=== PATIENT | male | born 1995 | race Caucasian/White ===

== ENCOUNTER 2020-04-03 10:37 | Emergency (ER) | payer SELFPAY ==
[~2020-04-03] VITALS: Ht 180.3 cm; Wt 106.0 kg
[2020-04-03 10:41] VITALS: BP 124/72
[2020-04-03] MEDS ORDERED: DIPH,PERTUSS(ACELL),TET VAC/PF 0.5 ML IM-VACC ONE ×2 (11:00→12:06)
[2020-04-03] MEDS ORDERED: NEOSPORIN OINT. PKT 1 PACKET ONE (12:08)
== END 2020-04-03 12:23 | disposition home or self-care (01) ==
LOC: ED 12:20
DX: S00.01XA Abrasion of scalp, initial encounter (principal); S09.90XA Unspecified injury of head, initial encounter; W22.8XXA Striking against or struck by other objects, initial encounter; Y93.89 Activity, other specified; Y92.098 Other place in other non-institutional residence as the place of occurrence of the external cause; Y99.8 Other external cause status
CPT/HCPCS: 90471; 90715; 99283